=== PATIENT | female | born 1945 | race Caucasian/White ===

== ENCOUNTER 2016-08-15 08:02 | Inpatient (IN) | payer OTHER ==
[2016-07-13 13:07] VITALS: Ht 175.3 cm; Wt 121.0 kg
--- NOTE | 2016-07-13 13:45 | PAT Medication Instructions ---
Service Date Jul 13, 2016. Current Home Medication List Fish Oil (Yachats-3), 1 CAP PO QAM Hydrochlorothiazide (Hctz), 25 MG PO QAM Ibuprofen Tab (Advil), 400 MG PO PRN Levothyroxine Sodium (Levothyroxine Sodium), 1 TAB PO QAM Lisinopril (Prinivil), 5 MG PO QAM Medication Instructions For Your Scheduled Surgery - Hold the following medications 10 days prior to surgery per surgeon instructions: Fish Oil (Yachats-3), 1 CAP PO QAM Ibuprofen Tab (Advil), 400 MG PO PRN - Hold the following medications the morning of surgery: Lisinopril (Prinivil), 5 MG PO QAM Hydrochlorothiazide (Hctz), 25 MG PO QAM - Take the following medications the morning of surgery with a sip of water: Levothyroxine Sodium (Levothyroxine Sodium), 1 TAB PO QAM If you have any questions please call us at [phone] or [phone] ( [place]) or [phone]
--- NOTE | 2016-07-13 14:39 | DIAGNOSTIC IMAGING REPORT ---
CHEST 2 VIEWS ROUTINE CLINICAL HISTORY: Preoperative evaluation. COMPARISON STUDY: No previous studies for comparison. FINDINGS: Lung volumes are within normal limits. There are old left rib fractures. Hazy opacity within the medial right lung base may reflect epicardial fat pad or atelectasis. There is no evidence of pulmonary edema. Cardiac size is within normal. There is no pneumothorax or pleural effusion. IMPRESSION: 1. No acute cardiopulmonary findings. 2. Hazy opacity within the medial right lung base which may reflect atelectasis or prominent epicardial fat pad. Electronically signed by: Osmar Delacruz M.D. 07/13/2016 2:37 PM Dictated Date/Time: 07/13/2016 2:36 PM
[2016-07-13 14:49] LABS: BASO % 0.6 %; BASO ABS # 0.03 K/uL (0-0.2); COMPLETE YES; EOS % 2.3 %; HEMATOCRIT 41.6 % (37-47); IG% 0.2 %; LYMPH % 30.8 %; MEAN CELL VOLUME 95.2 fL (80-100); MEAN CORPUSCULAR HEMOGLOBIN 32.3 pg (25-34); MEAN CORPUSCULAR HGB CONC 33.9 g/dl (32-36); MEAN PLATELET VOLUME 10.6 fL (7.4-10.4); MONO % 5.8 %; NEUT % 60.3 %; PLATELET COUNT 205 K/uL (130-400); RED BLOOD COUNT 4.37 M/uL (4.2-5.4); WHITE BLOOD COUNT 5.19 K/uL (4.8-10.8)
[2016-07-13 14:56] LABS: URINE APPEARANCE CLEAR (CLEAR); URINE BILIRUBIN NEG (NEG); URINE COLOR YELLOW; URINE EPITHELIAL CELL AUTO >30 /lpf (0-5); URINE NITRITE NEG (NEG); URINE PH 5.5 (4.5-7.5); URINE SPECIFIC GRAVITY 1.017 (1.000-1.030); UROBILINOGEN NEG (NEG); ZZUR CULT IF INDIC CLEAN CATCH NO
[2016-07-13 14:58] LABS: INR 0.9 (0.9-1.1); PROTHROMBIN TIME (PATIENT) 10.1 SECONDS (9.0-12.0)
[2016-07-13 15:02] LABS: MANUAL MICROSCOPIC REQUIRED? NO; REVIEW REQ? NO
[2016-07-13 15:08] LABS: BUN/CREATININE RATIO 22.8 (10-20); CREATININE 1.2 mg/dl (0.60-1.20); POTASSIUM 4.5 mmol/L (3.5-5.1)
--- NOTE | 2016-08-14 14:57 | HISTORY & PHYSICAL EXAMINATION ---
DATE OF ADMISSION: 08/15/2016 CHIEF COMPLAINT: Left knee pain. HISTORY OF PRESENT ILLNESS: Ms. Villaloobs is a 70-year-old female who has had knee pain for several years. Over the last year and a half, she states it gotten much worse. She rates her pain is a 7/10. She has pain with her daily activities. She has limited standing and walking tolerance. Pain is worse with weightbearing. The patient has had anti-inflammatories and home exercise program without relief. She has failed conservative treatment and is scheduled for left knee replacement. PAST MEDICAL HISTORY: Thyroid disease. She denies heart disease, diabetes or DVT. PAST SURGICAL HISTORY: Cardiac ablation and lumbar diskectomy/laminectomy. SOCIAL HISTORY: The patient denies alcohol or tobacco use. She lives in a 2-odilon home. She is retired and works in a farm. FAMILY HISTORY: Negative for DVT. MEDICATIONS: Fish oil 1000 mg, hydrochlorothiazide 25 mg, lisinopril 5 mg daily, levothyroxine 150 mcg daily. ALLERGIES: SUDAFED. REVIEW OF SYSTEMS: See HPI. Ten other systems reviewed, all negative. PHYSICAL EXAMINATION: VITAL SIGNS: Height 5 foot 8 inches, weight 264 pounds. BMI is 40. GENERAL: This is a well-developed, well-nourished female who is alert and oriented x3. Mood and affect are appropriate. HEENT: Normocephalic, atraumatic. Mucous membranes are moist and intact. NECK: Supple without lymphadenopathy. HEART: Regular rate and rhythm without murmurs, rubs or gallops. LUNGS: Clear to auscultation without wheezes or rhonchi. ABDOMEN: Soft and nontender. Bowel sounds are equal and active. EXTREMITIES: No ecchymosis, redness or warmth. She has varus deformity. Range of motion is from 0-110 degrees with no laxity. She is neurovascularly intact with +5/5 strength. X-RAY EXAMINATION: AP and lateral views show joint space narrowing and osteophyte formation, mostly in the medial compartment. IMPRESSION: Degenerative joint disease, left knee. PLAN: The patient will be admitted for a left total knee arthroplasty. We will plan on aspirin for DVT prophylaxis. The patient is doing outpatient physical therapy. PCP is Dr. Jannet Vega of [facility].
[~2016-08-15] VITALS: Ht 175.3 cm; Wt 121.0 kg
[2016-08-15] VITALS (8 sets, daily range): BP systolic 93–146; BP diastolic 60–89; PULSE 60–75; TEMP 36.3–36.7; O2SAT 92–99
[2016-08-15] MEDS: TRANEXAMIC ACID INJ 1,000 MG in SODIUM CHLORIDE 0.9% 100ML 100 ML IV SCH ×2 (06:30→09:13)
[~2016-08-15 08:02] MED LIST: ACETAMINOPHEN 500 MG TAB PO SCH; BUPIVACAINE 0.25% 30 ML VIAL ONE; BUPIVACAINE 0.5 % 5 MG/1 ML PF 10ML VIAL ONE; CEFAZOLIN 3000 MG/65 ML D5W 65 ML IV SCH; CeleBREX 200 MG CAP PO SCH; DEXAMETHASONE 4 MG TAB PO SCH; FAMOTIDINE 20 MG TAB PO SCH; GABAPENTIN 300 MG CAP PO SCH; HYDR25TA4 PO; IBUP-103 PO; LACTATED RINGER'S 1000ML 1,000 ML IV SCH; LACTATED RINGER'S 1000ML 500 ML IV ONE; LACTATED RINGER'S 1000ML IV SCH; LEVO150T9 PO; LISI-729 PO; METOCLOPRAMIDE HCL 10 MG TAB PO SCH; OMEG10007 PO; OXYCODONE HCL 10 MG TABCR (OXYCONTIN) PO SCH; POLYMYXIN B SULFATE 100,000 UNITS in NSS 100ML IR SCH; ROPIVACAINE 5MG/ML 30 ML 150 MG, BUPIVACAINE/EPINEPHR 0.5% MPF 30 ML, KETOROLAC TROMETH... INFIL SCH; VANCOMYCIN INJ 400 MG in NSS 100ML IR SCH
[2016-08-15] MEDS ORDERED: LIDOCAINE HCL 2% 2 ML VIAL (20MG/ML) ONE (09:01)
[2016-08-15] MEDS ORDERED: PROPOFOL IV EMULSION 10 MG/ML 20 ML VIAL IV ONE (09:01)
[2016-08-15] MEDS ORDERED: ONDANSETRON INJ 2 MG/ML 2 ML VIAL ONE (09:02)
[2016-08-15] MEDS ORDERED: MIDAZOLAM HCL 1 MG/ML 2ML VIAL ONE ×2 (09:02→11:24)
[2016-08-15] MEDS ORDERED: FENTANYL CITRATE INJ 50 MCG/1 ML 2 ML VIAL ONE (09:02)
--- NOTE | 2016-08-15 09:47 | History & Physical Bridge Note ---
H&P Re-Evaluation Bridge Note: I have examined the patient, reviewed the History & Physical and in the interval since the performance of the History & Physical I have noted the following changes of clinical significance: No changes noted
[2016-08-15] MEDS ORDERED: ORTHO JOINT ANESTHETIC ONE (10:25)
[2016-08-15] MEDS ORDERED: POVIDONE-IODINE OP SOLN 30 ML BTL ONE (10:25)
[2016-08-15] MEDS ORDERED: BACITRACIN 50000 UNIT VIAL ONE (10:25)
[2016-08-15] MEDS ORDERED: BUPIVACAINE/EPINEPHRINE 0.25% 1:200,000 30 ML VIAL ONE (10:25)
[2016-08-15] MEDS ORDERED: LACTATED RINGER'S 1000ML 1,000 ML IV PRN (10:26)
[2016-08-15] MEDS ORDERED: FENTANYL CITRATE INJ 50 MCG/1 ML 2 ML VIAL IV PRN (10:30)
[2016-08-15] MEDS ORDERED: ONDANSETRON INJ 2 MG/ML 2 ML VIAL IV PRN ×2 (10:30→12:30)
[2016-08-15] MEDS ORDERED: EpHEDrine SULFATE INJ 50 MG/ML AMP ONE (11:37)
--- NOTE | 2016-08-15 12:22 | [facility] Post Operative Brief Note ---
Immediate Operative Summary Operative Date Aug 15, 2016. Pre-Operative Diagnosis Degenerative joint disease, left knee Post-Operative Diagnosis Same as preop MORBID OBESITY BMI 40 Procedure(s) Performed Left total knee arthroplasty Surgeon Dr. De La Cruz Filer Finish Surgeon(s) Eris Ray PA-C Estimated Blood Loss 75 cc Findings SEEVER DZ Specimens A: left knee bone and tissue Complication(s) None Disposition Recovery Room / PACU
[2016-08-15] MEDS ORDERED: ZOLPIDEM TARTRATE 5 MG TAB PO PRN (12:30)
[2016-08-15] MEDS ORDERED: ALUMINUM/MAGNESIUM/SIMETH (MAALOX MAX) 30 ML UDC PO PRN (12:30)
[2016-08-15] MEDS ORDERED: MAGNESIUM HYDROXIDE SUSP 30 ML UDC PO PRN (12:30)
[2016-08-15] MEDS ORDERED: SOD PHOSPHATE/SOD BIPHOSPHATE ENEMA 132 ML BTL PR PRN (12:30)
[2016-08-15] MEDS ORDERED: METOCLOPRAMIDE HCL INJ 5 MG/ML 2 ML VIAL IV PRN (12:30)
[2016-08-15] MEDS ORDERED: BISACODYL 10 MG SUPP PR PRN (12:30)
[2016-08-15] MEDS ORDERED: OXYCODONE HCL IR 5 MG TAB (IMMEDIATE RELEASE) PO PRN (12:30)
[2016-08-15] MEDS ORDERED: TRAMADOL HCL 50 MG TAB PO PRN (12:30)
[2016-08-15] MEDS ORDERED: KETOROLAC TROMETHAMINE 15 MG/ML VIAL IV. PRN (12:30)
[2016-08-15] MEDS ORDERED: DiphenhydrAMINE HCL 50 MG/ML VIAL IV PRN (12:30)
[2016-08-15] MEDS ORDERED: MoRPHine SULFATE 2 MG/ML CARP IV PRN (12:30)
--- NOTE | 2016-08-15 13:39 | DIAGNOSTIC IMAGING REPORT ---
LEFT KNEE 1 OR 2 VIEWS ROUTINE CLINICAL HISTORY: AP/LATERAL IN PACU LEFT KNEE joint replacement COMPARISON: None. DISCUSSION: Status post total left knee replacement. Surgical drains are in position. Expected soft tissue postoperative change IMPRESSION: Anatomic alignment status post total joint replacement Electronically signed by: René Cheatham M.D. 08/15/2016 1:38 PM Dictated Date/Time: 08/15/2016 1:37 PM
--- NOTE | 2016-08-15 13:53 | Anesthesiology Progress Note ---
Anesthesia Post Op Note Date & Time Aug 15, 2016 at 13:53 Vital Signs Pain Intensity: 0 Vital Signs Past 12 Hours Date Time Temp Pulse Resp B/P Pulse Ox O2 Delivery O2 Flow Rate FiO2 08/15/16 13:50 66 14 106/58 97 Nasal Cannula 3 08/15/16 13:35 65 14 107/62 95 Nasal Cannula 3 08/15/16 13:25 65 14 105/59 94 Nasal Cannula 3 08/15/16 13:15 72 14 110/60 95 Nasal Cannula 3 08/15/16 13:05 72 14 112/62 94 Nasal Cannula 3 08/15/16 12:59 37.0 74 14 103/60 96 Nasal Cannula 3 08/15/16 08:49 36.5 75 20 146/89 99 Room Air Notes Mental Status: alert / awake / arousable, participated in evaluation Pt Amnestic to Procedure: Yes Nausea / Vomiting: adequately controlled Pain: adequately controlled Airway Patency, RR, SpO2: stable & adequate BP & HR: stable & adequate Hydration State: stable & adequate Neuraxial Anesthesia: was administered, sensory block is resolving Anesthetic Complications: no major complications apparent Pt doing well.
[2016-08-15] MEDS: D5W AND 1/2NSS + 20MEQ KCL 1,000 ML IV SCH (16:35)
--- NOTE | 2016-08-15 16:42 | OPERATIVE REPORT ---
DATE OF OPERATION: 08/15/2016 PREOPERATIVE DIAGNOSES: 1. Degenerative arthritis left knee. 2. Morbid obesity, BMI of 40. POSTOPERATIVE DIAGNOSES: Same. PROCEDURE: Left total knee with patient matched implant. SURGEON: Dr. De La Cruz. HATCHERY ATTENDANT: Dereck Ray PA-C. ANESTHESIA: Spinal. BLOOD LOSS: 75 mL. TOURNIQUET TIME: 20 minutes at 275 mmHg. DRAINS: Hemovac x2. CULTURES: None. COMPLICATIONS: None. COMPONENTS USED: Falcon \T\ Nephew Journey Knee System: Femur size 6, tibia size 5 x 9, patella size 35. NOTE: Dereck Ray PA-C was present and assisted throughout due to the complicated nature of this case. He helped with preparation and setup. He first assisted throughout and personally closed the capsule, subcutaneous and skin layers and applied the postoperative dressing. OPERATION AND FINDINGS: DESCRIPTION: Following satisfactory spinal, the patient was supine. A tourniquet was placed but not initially inflated. The lower extremity was prepared with ChloraPrep and draped sterilely. Following a surgical time-out, a midline incision was made with a trivector approach. The approach was difficult because of the patient's morbidly obese body habitus. This combined with the severity of her disease added a great deal more difficulty and extra time to the surgical procedure. Eventually the capsule was opened and the knee showed severe grade 4 changes throughout with absence of the anterior cruciate ligament. The posterior cruciate ligament was excised. The patient matched femoral block was applied. Femoral distal rotation and resection were set and completed. The 4-in-1 block was used to finish preparation of the femur. The patient matched tibial block was applied. Tibial resection was completed. The patella was freehand cut with again exposure being difficult. A trial reduction showed good tensioning and stability on the collateral ligaments, stable range of motion, and the patella tracked well. The tourniquet was inflated for better cement technique. The trial components were removed. The capsule was prepared with the orthopedic cocktail and after irrigation the components were cemented using Simplex G cement. A Betadine soak was performed. When the cement had hardened, the Betadine was irrigated. The tourniquet was deflated. The wound was irrigated and 2 drains were placed. The arthrotomy was closed with 0 V-Loc and reinforced with #1 Vicryl. Subcutaneous tissues were closed with 1 and 2-0 Vicryl. The skin was closed with a running subcuticular stitch of 3-0 V-Loc. Dermabond and a dry dressing were applied. The patient was returned to her bed in stable condition. I attest to the content of the Intraoperative Record and any orders documented therein. Any exceptio ns are noted below.
[2016-08-15] MEDS ORDERED: TRANEXAMIC ACID INJ 1,000 MG in SODIUM CHLORIDE 0.9% 100ML 100 ML IV SCH (18:30)
[2016-08-15] MEDS: CEFAZOLIN IV 2,000 MG in DEXTROSE 5% 50ML 50 ML IV SCH (19:45)
[2016-08-15] MEDS: ASPIRIN 81 MG ECTAB PO SCH (20:38)
[2016-08-15] MEDS: OXYCODONE HCL 10 MG TABCR (OXYCONTIN) PO SCH (20:53)
[2016-08-15] MEDS ORDERED: SENNA 8.6 MG TAB PO SCH (21:00)
[2016-08-15] MEDS: ACETAMINOPHEN 500 MG TAB PO SCH (22:03)
[2016-08-16] VITALS (7 sets, daily range): BP systolic 116–138; BP diastolic 71–83; PULSE 64–84; TEMP 36.6–37.2; O2SAT 93–97
[2016-08-16] MEDS: D5W AND 1/2NSS + 20MEQ KCL 1,000 ML IV SCH ×2 (01:31→11:30)
[2016-08-16] MEDS: CEFAZOLIN IV 2,000 MG in DEXTROSE 5% 50ML 50 ML IV SCH (03:30)
[2016-08-16] MEDS: ACETAMINOPHEN 500 MG TAB PO SCH ×2 (05:29→14:13)
[2016-08-16] MEDS ORDERED: LEVOTHYROXINE 150 MCG TAB PO SCH (06:00)
--- NOTE | 2016-08-16 07:42 | Orthopedic Progress Note ---
Orthopedic Progress Note Date of Service Aug 16, 2016. Subjective Post OP Day: 1 Reports: feeling well, Denies: SOB, calf pain, chest pain, light headedness, nausea / vomiting Objective calves soft nontender, N/V intact, dressing C/D/I, A&O x3, toes mobile, hemovac drainage (125/0 cc per shift) Date Time Temp Pulse Resp B/P Pulse Ox O2 Delivery O2 Flow Rate FiO2 08/16/16 03:30 36.6 65 16 125/71 93 Room Air 08/15/16 23:30 Room Air 08/15/16 22:50 36.7 68 16 105/69 94 Room Air 08/15/16 19:50 36.6 66 16 117/74 94 Room Air 08/15/16 17:19 36.7 66 18 93/60 93 Nasal Cannula 3.0 08/15/16 16:45 Nasal Cannula 2.0 08/15/16 16:16 36.5 62 16 99/64 95 Nasal Cannula 3.0 08/15/16 15:19 36.4 71 18 110/77 95 Nasal Cannula 3.0 08/15/16 14:50 36.3 60 16 107/72 94 Nasal Cannula 3.0 08/15/16 14:20 Nasal Cannula 08/15/16 14:20 36.7 63 12 103/68 92 Nasal Cannula 3.0 08/15/16 14:20 Nasal Cannula 3.0 08/15/16 13:50 36.4 66 14 106/58 97 Nasal Cannula 3 08/15/16 13:35 65 14 107/62 95 Nasal Cannula 3 08/15/16 13:25 65 14 105/59 94 Nasal Cannula 3 08/15/16 13:15 72 14 110/60 95 Nasal Cannula 3 08/15/16 13:05 72 14 112/62 94 Nasal Cannula 3 08/15/16 12:59 37.0 74 14 103/60 96 Nasal Cannula 3 08/15/16 08:49 36.5 75 20 146/89 99 Room Air Laboratory Results 24 Hours: Test 08/16/16 06:54 Assessment & Plan Assessment: POD#1 sp left TKA Inhouse Planning Pain Management: Celebrex, Oxycontin, PO Tylenol, Oxy IR DVT Prophylaxis: TEDs, SCDs, ASA Discharge Planning Discharge Planning: home with oppt (DC HOME TODAY )
[2016-08-16 07:43] LABS: HEMATOCRIT 37.1 % (37-47); MEAN CELL VOLUME 91.6 fL (80-100); MEAN CORPUSCULAR HEMOGLOBIN 31.4 pg (25-34); MEAN CORPUSCULAR HGB CONC 34.2 g/dl (32-36); MEAN PLATELET VOLUME 10.6 fL (7.4-10.4); PLATELET COUNT 198 K/uL (130-400); RED BLOOD COUNT 4.05 M/uL (4.2-5.4); WHITE BLOOD COUNT 15.58 K/uL (4.8-10.8)
[2016-08-16] MEDS ORDERED: MORP-157 PO (07:45)
[2016-08-16] MEDS ORDERED: RXC5 PO (07:45)
[2016-08-16] MEDS ORDERED: ONDA8TAB6 PO (07:45)
[2016-08-16] MEDS ORDERED: ACET-1138 PO (07:45)
[2016-08-16] MEDS ORDERED: SNK PO (07:45)
[2016-08-16] MEDS ORDERED: CLB200 PO (07:45)
[2016-08-16] MEDS ORDERED: ASPEC81 PO (07:45)
--- NOTE | 2016-08-16 07:47 | Discharge Instructions ---
Discharge Instructions Admission Reason for Admission: Left Knee Degenerative Arthritis Discharge Discharge Diagnosis / Problem: SP LEFT TKA Discharge Goals Goal(s): Decrease discomfort, Improve function, Increase independence Activity Recommendations Activity Limitations: per Instructions/Follow-up section . Instructions / Follow-Up Instructions / Follow-Up ACTIVITY RECOMMENDATIONS: SELF CARE INSTRUCTIONS AFTER TOTAL KNEE REPLACEMENT A. You may need to continue a physical therapy program after discharge from the hospital. There are several options available to you. Your doctor will assist you in selecting the best one for you. 1. An out-patient facility 2 to 3 times a week for therapy or home therapy. 2. Continue working on all exercises taught to you in the hospital. Your goals should be to increase bending of your knee to 90 degrees and beyond and to fully straighten your knee. B. You may progress at your own pace from walking with a walker or crutches to a cane; then to no assistive devices. C. Make walking a part of your daily routine. Be up as much as comfortable with rest periods throughout the day. Rest with leg elevation is very important. Use the ice wrap frequently for the first 3-4 weeks. D. There are no restrictions on activities. You may ride in a car, shop, participate in fish hatchery manager and all social activities. E. Wear the long elastic stockings (JESSE hose) 20 hours a day for 2 weeks after surgery. They can be removed several times a day for laundering and for a bath. F. You may shower, no tub baths until cleared by your doctor. SPECIAL CARE INSTRUCTIONS: VERY IMPORTANT TO READ AND REVIEW A. There are a few signs you need to watch for after you are home. Call [facility] [place] if you notice any of the followin. Increased severe knee pain. Some pain is expected especially when you exercise. 2. Increased swelling in your leg or knee; pain or swelling of the calf muscle in either lower leg. 3. Any fluid drainage from the incision. 4. Shortness of breath or chest pain. B. Please call [facility] [place] at if you have any concerns or questions about your operation or recovery. The doctor or his nurse will return your call promptly. C. You must take antibiotics before dental work, bladder, bowel or other surgery. Your doctor will provide you with a permanent care to carry describing this precaution. IMPORTANT: * REMEMBER TO TAKE ASPIRIN, 81 MG, TWICE DAILY FOR 4 WEEKS UNLESS OTHERWISE DIRECTED. THIS IS YOUR BLOOD THINNER. * HIGH RISK PATIENTS MAY BE PRESCRIBED A STRONGER BLOOD THINNER. THIS WILL BE PROVIDED AT DISCHARGE. * CALL IF INCREASED PAIN, REDNESS, DRAINAGE OR FEVER GREATER THAT 101. * WEAR JESSE HOSE 20 HOURS PER DAY FOR 2 WEEKS. DERMABOND Prineo- This is a mesh tape dressing that is covered with glue. It should remain in place until the incision is properly healed, usually 10-14 days. This dressing is designed to naturally slough off. You may trim the excess mesh tape as it peels off. Incision may be briefly wet in a shower. Dry immediately by blotting with a clean, dry towel. Do not bath or swim until instructed by your doctor. Do not scratch, rub, or pick at the dressing. Do not apply any topical ointments or lotions until dressing is completely removed and/or instructed by your doctor. There may be a small piece of suture material at one end of your incision. Do not pull or trim this. If it is bothersome or catching on clothing, you may cover it with a band-aid. FOLLOW UP VISIT: If appointment is not already scheduled: Please call [facility] [place] to make a follow-up appointment for 2 weeks after your surgery at . Current Hospital Diet Patient's current hospital diet: Regular Diet Discharge Diet Recommended Diet: Regular Diet Procedures Procedures Performed: Left total knee arthroplasty Pending Studies Studies pending at discharge: no Medical Emergencies . Who to Call and When: Medical Emergencies: If at any time you feel your situation is an emergency, please call 911 immediately. . Non-Emergent Contact Non-Emergency issues call your: Primary Care Provider . "Provider Documentation" section prepared by Megan Skinner. VTE Core Measure Inpt VTE Proph given/why not?: Other Anticoagulation, T.E.D. Stockings, SCD's [place] Drug Monitoring Program Search Results: patient reviewed within database, no issues identified
[2016-08-16 08:11] LABS: BUN/CREATININE RATIO 24.9 (10-20); CALCIUM 8.8 mg/dl (8.5-10.1); CREATININE 1.1 mg/dl (0.60-1.20); POTASSIUM 4.8 mmol/L (3.5-5.1)
[2016-08-16] MEDS ORDERED: PANTOprazole SOD 40 MG TAB PO SCH (09:00)
[2016-08-16] MEDS ORDERED: LISINOPRIL 5 MG TAB PO SCH (09:00)
[2016-08-16] MEDS ORDERED: HYDROCHLOROTHIAZIDE 25 MG TAB PO SCH (09:00)
[2016-08-16] MEDS ORDERED: MULTIVITAMIN TAB PO SCH (09:00)
[2016-08-16] MEDS: ASPIRIN 81 MG ECTAB PO SCH (09:02)
[2016-08-16] MEDS: OXYCODONE HCL 10 MG TABCR (OXYCONTIN) PO SCH (09:15)
--- NOTE | 2016-08-16 14:10 | Anesthesiology Progress Note ---
Anesthesia Post Op Note Date & Time Aug 16, 2016 at 14:08 Vital Signs Pain Intensity: 0.0 Vital Signs Past 12 Hours Date Time Temp Pulse Resp B/P Pulse Ox O2 Delivery O2 Flow Rate FiO2 08/16/16 11:47 36.9 64 20 116/73 93 Room Air 08/16/16 11:06 36.6 65 22 93 Nasal Cannula 08/16/16 10:58 70 97 08/16/16 10:10 93 Room Air 08/16/16 08:04 36.6 65 22 132/77 93 Room Air 08/16/16 07:57 37.2 84 18 138/72 93 Room Air 08/16/16 07:35 Room Air 08/16/16 03:30 36.6 65 16 125/71 93 Room Air Notes Mental Status: alert / awake / arousable, participated in evaluation Pt Amnestic to Procedure: Yes Nausea / Vomiting: adequately controlled Pain: adequately controlled Airway Patency, RR, SpO2: stable & adequate BP & HR: stable & adequate Hydration State: stable & adequate Neuraxial Anesthesia: was administered, sensory block resolved Anesthetic Complications: no major complications apparent
--- NOTE | 2016-08-17 15:18 | DISCHARGE SUMMARY ---
DISCHARGE DIAGNOSIS: Degenerative joint disease left knee. SECONDARY DIAGNOSES: History of thyroid disease. CONSULTS: None. COMPLICATIONS: None. PROCEDURES: Left total knee arthroplasty performed by Dr. Joshua De La Cruz on 08/15/2016. BRIEF HISTORY: As dictated in history and physical. HOSPITAL SUMMARY: The patient was admitted on the above-noted date and had the above-noted surgery performed which she tolerated well. On her first postoperative day, she was feeling well and had no complaints. Calves were soft and nontender, neurovascularly intact. Dressings clean, dry and intact. Toes were mobile. Vital signs were stable. She was afebrile and she was started on physical therapy protocol and continued on DVT prophylaxis and pain management. Hemoglobin was 12.7. The patient was progressing with physical therapy and the fact that she was obtaining 112 degrees of flexion and ambulating 325 feet x1 with a rolling walker and it was felt that she could be discharged to home. For further review, please see chart. LAB AND X-RAY DATA: As per chart. DISCHARGE INSTRUCTIONS: The patient was discharged to home in satisfactory condition on 08/16/2016. DIET: Regular. ACTIVITY: Follow TKA instruction sheets and special care instructions as noted. Follow up with Dr. Joshua De La Cruz in 2 weeks. The patient to call for an appointment if one has not been made. DISCHARGE MEDICATIONS: Acetaminophen 1000 mg p.o. q. 8 hours, aspirin 81 mg p.o. b.i.d., Celebrex 200 mg p.o. b.i.d., MS Contin 15 mg p.o. q. 12 hours, Zofran 8 mg p.o. q. 8 hours p.r.n., oxycodone 5-10 mg p.o. q. 4 hours p.r.n., senna 17.2 mg p.o. at bedtime, continue taking fish oil caplet 1 cap p.o. q.a.m., hydrochlorothiazide 25 mg p.o. q.a.m., levothyroxine 150 mcg 1 tab p.o. q.a.m., lisinopril 5 mg p.o. q.a.m. Stop taking ibuprofen.
[2016-08-17] MEDS ORDERED: CeleBREX 200 MG CAP PO SCH (21:00)
== END 2016-08-16 15:55 | disposition home or self-care (01) | DRG 470 ==
LOC: ENRESERVTM → ENRESERVDT → C.ACU 08:02 → C.3E 09:30
PROVIDERS: ADMIT Orthopaedic Surgery; ATTEND Orthopaedic Surgery
PROC: 0SRD0J9 Replacement of Left Knee Joint with Synthetic Substitute, Cemented, Open Approach (ICD-10-PCS; principal; 2016-08-15 10:30)
DX: M17.12 Unilateral primary osteoarthritis, left knee (principal); Z68.41 Body mass index [BMI] 40.0-44.9, adult; E07.9 Disorder of thyroid, unspecified; I10 Essential (primary) hypertension; E66.01 Morbid (severe) obesity due to excess calories; Z79.899 Other long term (current) drug therapy; Z98.890 Other specified postprocedural states